=== PATIENT | female | born 1985 | race Caucasian/White ===

== ENCOUNTER 2017-05-28 18:46 | Emergency (ER) | payer SELFPAY ==
[~2017-05-28] VITALS: Ht 162.6 cm; Wt 52.6 kg
[~2017-05-28 18:46] MED LIST: AMOXICILLIN500 MG PO; CIPRO500 MG OR; CIPROFLOXACN500 MG PO; KEFLEX500 MG OR; NO HOME MEDS; ZOFRAN ODT4 MG PO
[2017-05-28 19:58] LABS: HEMATOCRIT 47.7 % (37.0-47.0); HEMOGLOBIN 15.8 g/dl (12.0-16.0); IMMATURE GRANULOCYTES 0.4 % (0.0-1.0); MEAN CELL VOLUME 97.3 fL CALC (80.0-100.0); MEAN CORPUSCULAR HGB 32.2 pG CALC (26.0-32.0); MEAN CORPUSCULAR HGB CONC 33.1 g/L CALC (32.0-36.0); NEUT# 8.91 thou/uL (2.00-7.15); RED BLOOD COUNT 4.9 mill/uL (4.20-5.60); RED CELL DISTRI WIDTH 12.8 % (11.5-15.5)
[2017-05-28 20:02] LABS: URINE BILIRUBIN - DIPSTICK NEGATIVE (NEGATIVE); URINE BLOOD DIPSTICK MODERATE (NEGATIVE); URINE COLOR YELLOW; URINE GLUCOSE - DIPSTICK NEGATIVE (NEGATIVE); URINE KETONE TRACE mg/dL (NEGATIVE); URINE LEUK ESTERASE TRACE (NEGATIVE); URINE NITRITE - DIPSTICK NEGATIVE (Negative); URINE PH 5.5 (4.5-8.0); URINE PROTEIN - DIPSTICK NEGATIVE (NEG-TRACE); URINE SPECIFIC GRAVITY >=1.030; URINE UROBILINOGEN - DIPSTICK 0.2 E.U./dL (0.2)
[2017-05-28 20:07] LABS: URINE CLARITY CLEAR
[2017-05-28 20:09] LABS: ALBUMIN 4.9 g/dL (3.2-5.0); ALKALINE PHOSPHATASE 107 u/l (38-126); AMYLASE 66 u/l (30-110); ANION GAP 19 (6-22 (CALC)); BILIRUBIN, TOTAL 0.4 mg/dL (0.0-1.4); BUN 8 mg/dL (7-17); BUN/CREATININE RATIO 12 (12-20 (CALC)); CARBON DIOXIDE 28 mmol/l (22-30); CHLORIDE 101 mmol/l (95-108); CREATININE 0.7 mg/dL (0.5-1.0); GFR > 60 ML/MIN (>=60 (CALC)); GFR FOR AFR.AMER. > 60 ML/MIN (>=60 (CALC)); LIPASE 80 u/l (23-300); POTASSIUM 4.1 mmol/l (3.5-5.1); SGOT/AST 17 u/l (14-36); SGPT/ALT 24 u/l (9-52); SODIUM 145 mmol/l (137-146); TOTAL PROTEIN 8.1 g/dL (6.3-8.2)
[2017-05-28 20:16] LABS: URINE BACTERIA MODERATE hpf; URINE SQUAMOUS EPITHELIAL CELL FEW EPI/hpf (0-FEW)
[2017-05-28] MEDS ORDERED: ALLEGRA-D 2424 HOUR PO (22:31)
[2017-05-28] MEDS ORDERED: NYQUIL COLD & FLU PO (22:31)
[2017-05-28] MEDS ORDERED: ULTRAM50 M1 PO (22:36)
[2017-05-28] MEDS ORDERED: CIPROFLOXACN500 MG PO (22:36)
[2017-05-28 22:47] VITALS: BP 104/66
== END 2017-05-28 22:58 | disposition home or self-care (01) | DRG 690 ==
LOC: ED 18:46
PROVIDERS: Emergency Medicine
DX: N39.0 Urinary tract infection, site not specified (principal); B96.20 Unspecified Escherichia coli [E. coli] as the cause of diseases classified elsewhere; R10.32 Left lower quadrant pain; R10.12 Left upper quadrant pain

== ENCOUNTER 2022-01-02 09:43 | Emergency (ER) | payer SELFPAY ==
[~2022-01-02] VITALS: Ht 162.6 cm; Wt 63.4 kg
[~2022-01-02 09:43] MED LIST changes: +ALLEGRA-D 2424 HOUR PO; +NYQUIL COLD & FLU PO; +ULTRAM50 M1 PO
[2022-01-02 10:09] VITALS: BP 105/67
[2022-01-02] MEDS ORDERED: AMOXICILLIN500 M2 PO (11:58)
== END 2022-01-02 12:03 | disposition home or self-care (01) | DRG 153 ==
LOC: ED 09:43
DX: J02.9 Acute pharyngitis, unspecified (principal)